=== PATIENT | male | born 1985 | race Caucasian/White ===

== ENCOUNTER 2017-10-18 10:28 | Emergency (ER) | payer OTHER ==
[2017-10-18 10:42] VITALS: BP 147/80; PULSE 82; RESP 16; TEMP 98.6
[2017-10-18 10:47] LABS: Glucose,Whole Blood 340 mg/dL (75-99)
--- NOTE | 2017-10-18 11:03 | ED ---
General Adult HPI - General Chief complaint: Recheck/Abnormal Lab/Rx Stated complaint: DIABETIC Time Seen by Provider: 10/18/17 10:40 Source: EMS, RN notes reviewed Mode of arrival: EMS Limitations: no limitations - History of Present Illness Initial comments: This is a 32-year-old male who is a diabetic. Patient comes into the emergency department today complaining that he has high sugar in the 500s. Patient states she's been taking his insulin normally. Patient states he has not eaten yet today. Patient states this happens quite a bit with him. Patient states he has not been sick at all. Patient denies any fever or chills. Patient denies any difficulty breathing or shortness of breath or cough. Patient denies any chest pain or palpitations. Patient denies abdominal pain patient denies nausea vomiting diarrhea. Patient denies any rashes or redness or swelling. Patient denies any headache patient denies numbness weakness. Patient denies lightheadedness dizziness or nursing about so. Patient then received a phone call after I did a physical exam and he got an argument on the phone talking about going to rehabilitation tomorrow he would not tell me what happened or what was going on other than he wanted to leave AMA immediately. He wouldn't even discuss it with me or listen to me he was going to rip out his own IV. - Related Data Home Medications Medication Instructions Recorded Confirmed DULoxetine HCL [Cymbalta] 30 mg PO DAILY 03/17/16 03/17/16 Divalproex [Depakote] 500 mg PO BID 03/17/16 03/17/16 Gabapentin 800 mg PO TID 03/17/16 03/17/16 Insulin Aspart [NovoLOG] See Protocol SQ AC-TID 03/17/16 03/17/16 LORazepam [Ativan] 0.5 mg PO BID 03/17/16 03/17/16 buPROPion XL [Wellbutrin Xl] 150 mg PO DAILY 03/17/16 03/17/16 traZODone HCL [Oleptro ER] 150 mg PO HS 03/17/16 03/17/16 Allergies Allergy/AdvReac Type Severity Reaction Status Date / Time No Known Allergies Allergy Verified 10/18/17 10:41 Review of Systems ROS Statement: Those systems with pertinent positive or pertinent negative responses have been documented in the HPI. ROS Other: All systems not noted in ROS Statement are negative. Past Medical History Past Medical History: Diabetes Mellitus History of Any Multi-Drug Resistant Organisms: None Reported Past Surgical History: No Surgical Hx Reported Past Anesthesia/Blood Transfusion Reactions: No Reported Reaction Past Psychological History: Anxiety, Bipolar, Depression, Panic Disorder, PTSD Smoking Status: Current every day smoker Past Alcohol Use History: None Reported Past Drug Use History: Cocaine, Marijuana General Exam - General Exam Comments Initial Comments: GENERAL: Patient is well-developed and well-nourished. Patient is nontoxic and well- hydrated and is in no acute distress. ENT: Neck is soft and supple. No significant lymphadenopathy is noted. Oropharynx is clear. Moist mucous membranes. Neck has full range of motion without eliciting any pain. EYES: The sclera were anicteric and conjunctiva were pink and moist. Extraocular movements were intact and pupils were equal round and reactive to light. Eyelids were unremarkable. PULMONARY: Unlabored respirations. Good breath sounds bilaterally. No audible rales rhonchi or wheezing was noted. CARDIOVASCULAR: There is a regular rate and rhythm without any murmurs gallops or rubs. ABDOMEN: Soft and nontender with normal bowel sounds. No palpable organomegaly was noted. There is no palpable pulsatile mass. SKIN: Skin is clear with no lesions or rashes and otherwise unremarkable. NEUROLOGIC: Patient is alert and oriented x3. Cranial nerves II through XII are grossly intact. Motor and sensory are also intact. Normal speech, volume and content. Symmetrical smile. MUSCULOSKELETAL: Normal extremities with adequate strength and full range of motion. No lower extremity swelling or edema. No calf tenderness. LYMPHATICS: No significant lymphadenopathy is noted PSYCHIATRIC: Normal psychiatric evaluation. Limitations: no limitations Course Vital Signs 10/18/17 10:38 Temperature 98.6 F Pulse Rate 82 Respiratory 16 Rate Blood Pressure 147/80 O2 Sat by Pulse 100 Oximetry Medical Decision Making - Lab Data Lab Results 10/18/17 Range/Units 10:43 POC Glucose (mg/dL) 340 H (75-99) mg/dL POC Glu Cut Off Saw Operator Metal ID Kiesha Toribio Disposition Clinical Impression: Hyperglycemia Disposition: Left Against Medical Advice Is patient prescribed a controlled substance at d/c from ED?: No [facility] [[facility] - 1-2 days Time of Disposition: 11:03
[2017-10-18] MEDS ORDERED: SODIUM CHLORIDE 0.9% 1,000 ML IV ONE (11:05)
== END 2017-10-18 11:09 | disposition left against medical advice (07) ==
LOC: EC 10:28
DX: E11.65 Type 2 diabetes mellitus with hyperglycemia (principal); F31.9 Bipolar disorder, unspecified; F41.0 Panic disorder [episodic paroxysmal anxiety]; F43.10 Post-traumatic stress disorder, unspecified; F17.200 Nicotine dependence, unspecified, uncomplicated; Z53.29 Procedure and treatment not carried out because of patient's decision for other reasons; Z79.4 Long term (current) use of insulin; Z79.899 Other long term (current) drug therapy
CPT/HCPCS: 36415; 99283

== ENCOUNTER 2019-03-11 23:58 | Emergency (ER) | payer OTHER ==
[2019-03-12 00:07] LABS: Glucose,Whole Blood 52 mg/dL (75-99)
[2019-03-12 00:25] LABS: Glucose,Whole Blood 54 mg/dL (75-99)
[2019-03-12 00:52] LABS: Glucose,Whole Blood 65 mg/dL (75-99)
[2019-03-12 00:58] LABS: Glucose,Whole Blood 80 mg/dL (75-99)
--- NOTE | 2019-03-12 01:06 | ED ---
Recheck HPI - General Chief Complaint: Recheck/Abnormal Lab/Rx Stated Complaint: Diabetic Issues/ not feeling well Time Seen by Provider: 03/12/19 00:02 Source: patient Mode of arrival: ambulatory Limitations: no limitations - History of Present Illness Initial Comments: 's patient is 34-year-old man who presents to the emergency department with like that he was not feeling well. Patient had been at rehabilitation Center and then signed out because he did not like the way that facility was being managed. Patient has not had access to any of his medications subsequently. States that he did have his insulin earlier today. Patient states that he is feeling nauseated. Denies focal pain. No dyspnea area no fever or chills. MD Complaint: other (Blood sugar in the 50s) -: hour(s) Returns Today for: request for prescription Context: ran out of medication Associated Symptoms: nausea - Related Data Home Medications Medication Instructions Recorded Confirmed Divalproex [Depakote] 500 mg PO BID 03/17/16 03/12/19 Gabapentin 800 mg PO TID 03/17/16 03/12/19 INSULIN ASPART (NovoLOG) [NovoLOG] See Protocol SQ AC-TID 03/17/16 03/12/19 buPROPion XL [Wellbutrin Xl] 150 mg PO DAILY 03/17/16 03/12/19 Lisinopril [Zestril] 5 mg PO DAILY 03/12/19 03/12/19 traMADol HCL [Ultram] 50 mg PO Q12HR PRN 03/12/19 03/12/19 Allergies Allergy/AdvReac Type Severity Reaction Status Date / Time No Known Allergies Allergy Verified 03/12/19 00:07 Review of Systems ROS Statement: Those systems with pertinent positive or pertinent negative responses have been documented in the HPI. ROS Other: All systems not noted in ROS Statement are negative. Constitutional: Denies: fever, weakness Respiratory: Denies: cough, dyspnea Cardiovascular: Denies: chest pain, palpitations, edema, syncope Gastrointestinal: Reports: nausea. Denies: abdominal pain, vomiting, diarrhea Genitourinary: Denies: dysuria Musculoskeletal: Denies: back pain Skin: Denies: rash Neurological: Denies: headache Past Medical History Past Medical History: Diabetes Mellitus History of Any Multi-Drug Resistant Organisms: None Reported Past Surgical History: No Surgical Hx Reported Past Anesthesia/Blood Transfusion Reactions: No Reported Reaction Past Psychological History: Anxiety, Bipolar, Depression, Panic Disorder, PTSD Smoking Status: Current every day smoker Past Alcohol Use History: None Reported Past Drug Use History: Cocaine, Marijuana General Exam Limitations: no limitations General appearance: alert, in no apparent distress Head exam: Present: atraumatic, normocephalic Eye exam: Present: normal appearance. Absent: scleral icterus, conjunctival injection Neck exam: Present: normal inspection Respiratory exam: Present: normal lung sounds bilaterally. Absent: respiratory distress, wheezes, rales, rhonchi, stridor Cardiovascular Exam: Present: regular rate, normal rhythm, normal heart sounds. Absent: systolic murmur, diastolic murmur, rubs, gallop GI/Abdominal exam: Present: soft. Absent: distended, tenderness, guarding, rebound, rigid Extremities exam: Present: normal inspection, normal capillary refill. Absent: pedal edema, calf tenderness Neurological exam: Present: alert, normal gait Skin exam: Present: warm, dry, intact, normal color. Absent: rash Course Vital Signs 03/12/19 00:02 Temperature 97.4 F L Pulse Rate 101 H Respiratory 17 Rate Blood Pressure 129/82 O2 Sat by Pulse 98 Oximetry Medical Decision Making - Medical Decision Making Shouldn't is 34-year-old man who presents here with complaint that he is not feeling well and has not had access to medications since approximately 8 this morning. The patient on arrival his blood sugar of 52. He is given oral intake which she did tolerate. Blood sugars followed serially and have improved, being stable now. He is given prescription for all of his medications. Return parameters and appropriate follow-up discussed. - Lab Data Lab Results 03/12/19 03/12/19 03/12/19 Range/Units 00:05 00:24 00:39 POC Glucose (mg/dL) 52 L 54 L 65 L (75-99) mg/dL POC Glu Profiling Machine Set Up Operator Tool ID Farzana Joy Alisha Welsh, Alisha 03/12/19 Range/Units 00:55 POC Glucose (mg/dL) 80 (75-99) mg/dL POC Glu Profiling Machine Set Up Operator Tool ID Rita Peralta Disposition Clinical Impression: Hypoglycemia Disposition: HOME SELF-CARE Condition: Good Instructions (If sedation given, give patient instructions): Hypoglycemia in a Person with Diabetes (ED) Is patient prescribed a controlled substance at d/c from ED?: No Referrals: Yolanda Harrison MD [Primary Care Provider] - 1-2 days
[2019-03-12 01:25] VITALS: BP 125/68; PULSE 100; RESP 18; TEMP 98.4
[2019-03-13 13:38] LABS: Glucose,Whole Blood 146 mg/dL (75-99)
== END 2019-03-12 01:26 | disposition home or self-care (01) ==
LOC: EC 23:58
DX: E11.649 Type 2 diabetes mellitus with hypoglycemia without coma (principal); F31.9 Bipolar disorder, unspecified; F41.0 Panic disorder [episodic paroxysmal anxiety]; F17.200 Nicotine dependence, unspecified, uncomplicated; Z79.4 Long term (current) use of insulin; Z79.899 Other long term (current) drug therapy
CPT/HCPCS: 36415; 99283

== ENCOUNTER 2019-05-07 10:44 | Emergency (ER) | payer OTHER ==
[2019-05-07 11:19] VITALS: BP 170/94; PULSE 92; RESP 16; TEMP 97.7
[2019-05-07] MEDS ORDERED: KETOROLAC 60 MG/2 ML VIAL IM STA (11:28)
--- NOTE | 2019-05-07 12:13 | XR ---
EXAMINATION TYPE: XR knee complete LT DATE OF EXAM: 05/07/2019 COMPARISON: NONE HISTORY: Pain TECHNIQUE: Four views are submitted. FINDINGS: Joint spaces are preserved. Osseous structures are intact. No acute fracture seen. IMPRESSION: 1. No acute fracture or dislocation.
--- NOTE | 2019-05-07 12:14 | XR ---
EXAMINATION TYPE: XR tibia fibula LT DATE OF EXAM: 05/07/2019 COMPARISON: NONE HISTORY: Pain TECHNIQUE: Two views are submitted. FINDINGS: The osseous structures are intact. The joint spaces are preserved. IMPRESSION: 1. No acute osseous abnormality.
[2019-05-07] MEDS ORDERED: traMADol 50 MG STARTER PACK 3 TAB BTL PO STA (12:38)
--- NOTE | 2019-05-07 12:40 | ED ---
Lower Extremity Injury HPI - General Chief Complaint: Extremity Injury, Lower Stated Complaint: lt knee injury Time Seen by Provider: 05/07/19 11:21 Source: patient Mode of arrival: EMS Limitations: no limitations - History of Present Illness Initial Comments: Patient is a 34-year-old male presenting to the emergency Department with complaints of left knee pain since last night. Patient states he fell down a few stairs last night landing rate on his left knee. Patient states he's been having pain and swelling ever since. Patient denies previous history of left knee surgeries or injuries. Patient denies any other injuries from this fall including no LOC, no headache. Patient denies blood thinners. The patient has no other complaints at this time. Upon arrival to the ER, his vital signs are stable. - Related Data Home Medications Medication Instructions Recorded Confirmed Divalproex [Depakote] 500 mg PO BID 03/17/16 03/12/19 Gabapentin 800 mg PO TID 03/17/16 03/12/19 INSULIN ASPART (NovoLOG) [NovoLOG] See Protocol SQ AC-TID 03/17/16 03/12/19 buPROPion XL [Wellbutrin Xl] 150 mg PO DAILY 03/17/16 03/12/19 Lisinopril [Zestril] 5 mg PO DAILY 03/12/19 03/12/19 traMADol HCL [Ultram] 50 mg PO Q12HR PRN 03/12/19 03/12/19 Allergies Allergy/AdvReac Type Severity Reaction Status Date / Time No Known Allergies Allergy Verified 05/07/19 11:20 Review of Systems ROS Statement: Those systems with pertinent positive or pertinent negative responses have been documented in the HPI. ROS Other: All systems not noted in ROS Statement are negative. Past Medical History Past Medical History: Diabetes Mellitus History of Any Multi-Drug Resistant Organisms: None Reported Past Surgical History: No Surgical Hx Reported Past Anesthesia/Blood Transfusion Reactions: No Reported Reaction Past Psychological History: Anxiety, Bipolar, Depression, Panic Disorder, PTSD Smoking Status: Current every day smoker Past Alcohol Use History: None Reported Past Drug Use History: Cocaine, Marijuana General Exam - General Exam Comments Initial Comments: GENERAL: Patient appears uncomfortable, complaining of intense pain.. HEAD: Atraumatic, normocephalic. EYES: Pupils equal round and reactive to light, extraocular movements intact, sclera anicteric, conjunctiva are normal. ENT: Moist mucous membranes. NECK: Normal range of motion, supple without lymphadenopathy or JVD. LUNGS: Breath sounds clear to auscultation bilaterally and equal. No wheezes rales or rhonchi. HEART: Regular rate and rhythm without murmurs, rubs or gallops. ABDOMEN: Soft, nontender, normoactive bowel sounds. No guarding, no rebound. No masses appreciated. EXTREMITIES: Pain with palpation of the entire left knee, small abrasion atop the left patella. Patient is unwilling to move left knee so range of motion cannot be tested. There is very mild swelling around the knee joint. No erythema, no pain with palpation of the left ankle, tib-fib, femur area. No pain in the left hip. Patient is neurovascular intact. NEUROLOGICAL: Normal speech SKIN: Warm, Dry, normal turgor, no rashes or lesions noted. Limitations: no limitations Course Vital Signs 05/07/19 11:17 Temperature 97.7 F Pulse Rate 92 Respiratory 16 Rate Blood Pressure 170/94 O2 Sat by Pulse 93 L Oximetry Medical Decision Making - Medical Decision Making Patient is a 34-year-old male presenting with left knee pain after falling on it last night. Patient has small abrasion on the left anterior knee. X-rays reveal no acute fractures dislocations. Patient is unwilling to move the knee so further ligament testing is not performed today. I discussed with patient and he does a follow-up with orthopedics. Patient was given Toradol injection for pain relief. Patient will also be given Ultram started pack for pain relief. Patient is stable for discharge at this time. Patient was given referral to orthopedics. Return parameters were discussed with the patient he verbalizes understanding. Disposition Clinical Impression: Left knee pain Disposition: HOME SELF-CARE Condition: Stable Instructions (If sedation given, give patient instructions): Knee Sprain (ED) Additional Instructions: Please return to the Emergency Department if symptoms worsen or any other concerns. Continue with anti-inflammatories such as motrin. Ice, elevate. Follow-up with orthopedics as discussed. Is patient prescribed a controlled substance at d/c from ED?: No Referrals: Yolanda Harrison MD [Primary Care Provider] - 1-2 days Marvin Laureano DO [Medical Doctor] - 1-2 days
== END 2019-05-07 12:56 | disposition home or self-care (01) ==
LOC: EC 10:44
DX: M25.562 Pain in left knee (principal); S80.212A Abrasion, left knee, initial encounter; E11.9 Type 2 diabetes mellitus without complications; F31.9 Bipolar disorder, unspecified; F41.0 Panic disorder [episodic paroxysmal anxiety]; F17.200 Nicotine dependence, unspecified, uncomplicated; Z79.4 Long term (current) use of insulin; Z79.899 Other long term (current) drug therapy; W10.9XXA Fall (on) (from) unspecified stairs and steps, initial encounter
CPT/HCPCS: 73590; 73562; 99283; 96372; J1885

== ENCOUNTER 2019-06-09 21:33 | Inpatient (IN) | payer MEDICAID, OTHER ==
[2019-06-09 22:16] LABS: Amphetamine Screen,Urine Detected (NotDetected); Barbiturate Screen,Urine Not Detected (NotDetected); Benzodiazepines Screen,Urine Not Detected (NotDetected); Cocaine Screen,Urine Detected (NotDetected); Methadone Screen, Urine Not Detected (NotDetected); Opiate Screen,Urine Not Detected (NotDetected); Oxycodone Screen, Urine Not Detected (NotDetected); Phencyclidine Screen,Urine Not Detected (NotDetected); Tricyclic Antidepressant,Urine Not Detected (NotDetected); Urn Cannabinoid Scrn Not Detected (NotDetected)
[2019-06-09 22:35] LABS: Glucose,Whole Blood >600 mg/dL (75-99)
[2019-06-09] MEDS ORDERED: SODIUM CHLORIDE 0.9% 2,000 ML IV ONE (22:45)
[2019-06-09] MEDS ORDERED: INSULIN REGULAR 100 UNIT/ML VIAL SQ STA (22:45)
--- NOTE | 2019-06-09 22:50 | ED ---
Psych HPI - General Chief Complaint: Psychiatric Symptoms Stated Complaint: Suicidal Time Seen by Provider: 06/09/19 21:44 Source: patient Mode of arrival: ambulatory - History of Present Illness Initial Comments: This patient is a 34-year-old man who presents to have psychiatric evaluation. Patient has history of depression and previous suicidal ideation. He states that he ran out of his psychiatric medications about 2 weeks ago and since that time is having worsening of his mood and now having recurring thoughts of suicide by overdosing. MD Complaint: suicidal ideation, feels depressed Onset/Timin -: week(s) Associated Psychiatric Symptoms: depression, suicidal ideation History of same: No Quality: getting worse Improves With: medication Worsens With: none Context: not taking psychiatric medications - Related Data Home Medications Medication Instructions Recorded Confirmed Divalproex [Depakote] 500 mg PO BID 03/17/16 03/12/19 Gabapentin 800 mg PO TID 03/17/16 03/12/19 INSULIN ASPART (NovoLOG) [NovoLOG] See Protocol SQ AC-TID 03/17/16 03/12/19 buPROPion XL [Wellbutrin Xl] 150 mg PO DAILY 03/17/16 03/12/19 Lisinopril [Zestril] 5 mg PO DAILY 03/12/19 03/12/19 traMADol HCL [Ultram] 50 mg PO Q12HR PRN 03/12/19 03/12/19 Allergies Allergy/AdvReac Type Severity Reaction Status Date / Time No Known Allergies Allergy Verified 06/09/19 21:39 Review of Systems ROS Statement: Those systems with pertinent positive or pertinent negative responses have been documented in the HPI. ROS Other: All systems not noted in ROS Statement are negative. Constitutional: Denies: fever, chills Respiratory: Denies: cough, dyspnea Cardiovascular: Denies: chest pain, palpitations Gastrointestinal: Denies: abdominal pain, vomiting, diarrhea Genitourinary: Denies: dysuria, frequency, hematuria Musculoskeletal: Denies: back pain Skin: Denies: rash Neurological: Denies: headache, weakness Psychiatric: Reports: depression, suicidal thoughts. Denies: auditory hallucinations, visual hallucinations, homicidal thoughts Past Medical History Past Medical History: Diabetes Mellitus History of Any Multi-Drug Resistant Organisms: None Reported Past Surgical History: No Surgical Hx Reported Past Anesthesia/Blood Transfusion Reactions: No Reported Reaction Past Psychological History: Anxiety, Bipolar, Depression, Panic Disorder, PTSD Smoking Status: Current every day smoker Past Alcohol Use History: None Reported Past Drug Use History: Cocaine, Marijuana, Methamphetamine General Exam Limitations: no limitations General appearance: alert, in no apparent distress Head exam: Present: atraumatic, normocephalic Eye exam: Present: normal appearance. Absent: scleral icterus, conjunctival injection ENT exam: Present: normal oropharynx Neck exam: Present: normal inspection Respiratory exam: Present: normal lung sounds bilaterally. Absent: respiratory distress, wheezes, rales, rhonchi, stridor Cardiovascular Exam: Present: regular rate, normal rhythm, normal heart sounds. Absent: systolic murmur, diastolic murmur, rubs, gallop GI/Abdominal exam: Present: soft. Absent: tenderness, guarding, rebound Back exam: Present: normal inspection Neurological exam: Present: alert Psychiatric exam: Present: depressed, suicidal ideation. Absent: agitated, anxious, flat affect, manic, homicidal ideation Skin exam: Present: warm, dry, intact, normal color. Absent: rash Course Vital Signs 06/09/19 21:36 Temperature 97.8 F Pulse Rate 102 H Respiratory 20 Rate Blood Pressure 134/81 O2 Sat by Pulse 99 Oximetry Medical Decision Making - Lab Data Result diagrams: 06/09/19 20:50 06/09/19 20:50 Lab Results 06/09/19 06/09/19 06/09/19 Range/Units 20:50 20:50 20:50 WBC 12.4 H (3.8-10.6) k/uL RBC 4.02 L (4.30-5.90) m/uL Hgb 12.3 L (13.0-17.5) gm/dL Hct 38.3 L (39.0-53.0) % MCV 95.4 (80.0-100.0) fL MCH 30.7 (25.0-35.0) pg MCHC 32.2 (31.0-37.0) g/dL RDW 13.0 (11.5-15.5) % Plt Count 445 (150-450) k/uL Neutrophils % 73 % Lymphocytes % 18 % Monocytes % 4 % Eosinophils % 2 % Basophils % 2 % Neutrophils # 9.0 H (1.3-7.7) k/uL Lymphocytes # 2.2 (1.0-4.8) k/uL Monocytes # 0.5 (0-1.0) k/uL Eosinophils # 0.2 (0-0.7) k/uL Basophils # 0.2 (0-0.2) k/uL Sodium 130 L (137-145) mmol/L Potassium 4.9 (3.5-5.1) mmol/L Chloride 93 L (98-107) mmol/L Carbon Dioxide 30 (22-30) mmol/L Anion Gap 7 mmol/L BUN 22 H (9-20) mg/dL Creatinine 0.80 (0.66-1.25) mg/dL Est GFR (CKD-EPI)AfAm >90 (>60 ml/min/1.73 sqM) Est GFR (CKD-EPI)NonAf >90 (>60 ml/min/1.73 sqM) Glucose 620 H* (74-99) mg/dL POC Glucose (mg/dL) (75-99) mg/dL POC Glu Palliative Medicine Physician ID Calcium 9.4 (8.4-10.2) mg/dL Urine Opiates Screen (NotDetected) Ur Oxycodone Screen (NotDetected) Urine Methadone Screen (NotDetected) Ur Propoxyphene Screen (NotDetected) Ur Barbiturates Screen (NotDetected) U Tricyclic Antidepress (NotDetected) Ur Phencyclidine Scrn (NotDetected) Ur Amphetamines Screen (NotDetected) U Methamphetamines Scrn (NotDetected) U Benzodiazepines Scrn (NotDetected) Urine Cocaine Screen (NotDetected) U Marijuana (THC) Screen (NotDetected) Acetone, Qual Negative (Negative) 06/09/19 06/09/19 06/10/19 Range/Units 21:47 22:33 00:59 WBC (3.8-10.6) k/uL RBC (4.30-5.90) m/uL Hgb (13.0-17.5) gm/dL Hct (39.0-53.0) % MCV (80.0-100.0) fL MCH (25.0-35.0) pg MCHC (31.0-37.0) g/dL RDW (11.5-15.5) % Plt Count (150-450) k/uL Neutrophils % % Lymphocytes % % Monocytes % % Eosinophils % % Basophils % % Neutrophils # (1.3-7.7) k/uL Lymphocytes # (1.0-4.8) k/uL Monocytes # (0-1.0) k/uL Eosinophils # (0-0.7) k/uL Basophils # (0-0.2) k/uL Sodium (137-145) mmol/L Potassium (3.5-5.1) mmol/L Chloride (98-107) mmol/L Carbon Dioxide (22-30) mmol/L Anion Gap mmol/L BUN (9-20) mg/dL Creatinine (0.66-1.25) mg/dL Est GFR (CKD-EPI)AfAm (>60 ml/min/1.73 sqM) Est GFR (CKD-EPI)NonAf (>60 ml/min/1.73 sqM) Glucose (74-99) mg/dL POC Glucose (mg/dL) >600 H 135 H (75-99) mg/dL POC Glu Palliative Medicine Physician ID Leonor Cordova Tiffany Calcium (8.4-10.2) mg/dL Urine Opiates Screen Not Detected (NotDetected) Ur Oxycodone Screen Not Detected (NotDetected) Urine Methadone Screen Not Detected (NotDetected) Ur Propoxyphene Screen Not Detected (NotDetected) Ur Barbiturates Screen Not Detected (NotDetected) U Tricyclic Antidepress Not Detected (NotDetected) Ur Phencyclidine Scrn Not Detected (NotDetected) Ur Amphetamines Screen Detected H (NotDetected) U Methamphetamines Scrn Detected H (NotDetected) U Benzodiazepines Scrn Not Detected (NotDetected) Urine Cocaine Screen Detected H (NotDetected) U Marijuana (THC) Screen Not Detected (NotDetected) Acetone, Qual (Negative) Disposition Clinical Impression: Suicidal ideation, Mood disorder, Hyperglycemia, Substance abuse Disposition: ADMITTED IP TO THIS HOSP Condition: Fair Is patient prescribed a controlled substance at d/c from ED?: No Referrals: Yolanda Harrison MD [Primary Care Provider] - 1-2 days
[2019-06-09 23:07] LABS: Basophils # (A) 0.2 k/uL (0-0.2); Basophils % (A) 2 %; Eosinophils # (A) 0.2 k/uL (0-0.7); Eosinophils % (A) 2 %; HCT 38.3 % (39.0-53.0); HGB 12.3 gm/dL (13.0-17.5); Lymphocytes # (A) 2.2 k/uL (1.0-4.8); Lymphocytes % (A) 18 %; MCH 30.7 pg (25.0-35.0); MCHC 32.2 g/dL (31.0-37.0); MCV 95.4 fL (80.0-100.0); Mean Platelet Volume 7.3; Monocytes # (A) 0.5 k/uL (0-1.0); Monocytes % (A) 4 %; Neutrophils % (A) 73 %; Platelet Count 445 k/uL (150-450); RBC 4.02 m/uL (4.30-5.90); WBC 12.4 k/uL (3.8-10.6)
[2019-06-09 23:24] LABS: African American GFR (CKD) >90 (>60 ml/min/1.73 sqM); Anion Gap 7 mmol/L; Blood Urea Nitrogen 22 mg/dL (9-20); Calcium 9.4 mg/dL (8.4-10.2); Carbon Dioxide 30 mmol/L (22-30); Chloride 93 mmol/L (98-107); Non-African American GFR(CKD) >90 (>60 ml/min/1.73 sqM); Potassium 4.9 mmol/L (3.5-5.1); Sodium 130 mmol/L (137-145)
[2019-06-09 23:34] LABS: Glucose 620 mg/dL (74-99)
[2019-06-09] MEDS ORDERED: SODIUM CHLORIDE 0.9% 1,000 ML IV ONE (23:45)
[2019-06-10 01:02] LABS: Glucose,Whole Blood 135 mg/dL (75-99)
[2019-06-10] MEDS ORDERED: LORazepam 2 MG/ML INJ IV STA (02:22)
[2019-06-10] MEDS ORDERED: MAG HYDROX/AL HYDROX/SIMETH 30 ML CUP PO PRN (03:18)
[2019-06-10] MEDS ORDERED: MAGNESIUM HYDROXIDE 2,400 MG/10 ML CUP PO PRN (03:18)
[2019-06-10] MEDS ORDERED: OLANZapine ODT 5 MG TAB PO PRN (03:23)
[2019-06-10] MEDS ORDERED: traZODone HCL 50 MG TAB PO PRN (03:23)
[2019-06-10 08:01] LABS: Glucose,Whole Blood 222 mg/dL (75-99)
[2019-06-10 08:14] LABS: ALT 34 U/L (4-49); AST 23 U/L (17-59); Albumin 2.8 g/dL (3.5-5.0); Alkaline Phosphatase 120 U/L (38-126); Bilirubin, Delta 0.2 mg/dL (0.0-0.2); Cholesterol 161 mg/dL (<200); HDL Cholesterol 49 mg/dL (40-60); LDL Cholesterol,Calculated 89 mg/dL (0-99); Total Bilirubin 0.2 mg/dL (0.2-1.3); Total Protein 5.7 g/dL (6.3-8.2); Triglycerides 113 mg/dL (<150)
[2019-06-10 08:19] LABS: Valproic Acid (Depakene) <10.0 ug/mL
[2019-06-10] MEDS ORDERED: INSULIN DETEMIR (LEVEMIR) 100 UNIT/ML SYR SQ ONE (09:04)
[2019-06-10] MEDS ORDERED: INSULIN ASPART (NovoLOG) 100 UNIT/ML VIAL SQ ONE (09:15)
[2019-06-10] MEDS: NICOTINE 14MG/24HR PATCH TRANSDERM SCH ×2 (09:23→09:29)
[2019-06-10] MEDS: DIVALPROEX 250 MG TABLET.DR PO SCH ×2 (09:23→20:21)
[2019-06-10] MEDS ORDERED: INSULIN ASPART (NovoLOG) 100 UNIT/ML VIAL SQ SCH (12:30)
[2019-06-10 12:45] LABS: Glucose,Whole Blood 46 mg/dL (75-99)
[2019-06-10 12:45] LABS: Glucose,Whole Blood 48 mg/dL (75-99)
[2019-06-10 12:58] LABS: Glucose,Whole Blood 64 mg/dL (75-99)
[2019-06-10 13:25] LABS: Glucose,Whole Blood 90 mg/dL (75-99)
--- NOTE | 2019-06-10 13:33 | P.HP ---
Psychiatric H&P - . H&P Date: 06/10/19 History & Physical: IDENTIFYING Data: Naveed Messina is a 34-year-old single male who is currently homeless, unemployed, has psychiatric history of bipolar disorder, anxiety disorder, and substance use disorder, and medical history of diabetes mellitus. The patient has been admitted to our inpatient psychiatric services after been transferred from [facility] ED. Patient was initially brought to ED by his friend because patient was feeling depressed and suicidal. The patient has been admitted on voluntary basis to our service. CHIEF COMPLAINT: "Depression, suicidal thoughts." HISTORY OF PRESENT ILLNESS: The patient brought himself to the emergency department because severe depression and feeling suicidal. Patient was very superficial in his answers to questions and he couldn't give any specific information about his symptoms. He reports has been feeling increasingly depressed and suicidal for the last "several weeks" and he wasn't taking his psychiatric medications for "few weeks", and he was using meth and cocaine "almost every day". Patient reports depression symptoms including feeling depressed for most of the time, hopeless, worthless, was present and suicidal thoughts and intermittently thinking about plan to overdose on drugs. Patient reports has been using cocaine and meth amphetamine intravenously for "a while" and he couldn't give any specific amount of the drugs. He reports suffering from severe anxiety that he feels anxious with racing thoughts most of the time that he couldn't concentrate or sleep because of his anxiety. He reports symptoms of tightness of the chest, and racing heart due to his anxiety. Reports history of panic attacks but he couldn't give specific information when was the last time had panic attack. He denies symptoms of nightmares, flashbacks, or intrusive thoughts, and he denies any history of PTSD. Patient reports history of severe mood cycles with previous episodes of manic symptoms including times with very elated and euphoric mood, feeling "invincible", absence need to sleep due to unusual increase in activities, and impulsive uninhibited behavior. Patient couldn't give any further details about his previous manic episodes and responded by "I don't remember". He denies any current or previous symptoms of psychosis including auditory, visual hallucination, paranoid ideation, and no delusions could be elicited. Patient denies any history of self-injurious behavior, but reports previous suicidal attempts. Patient couldn't give any detailed information about his previous suicidal attempt and responded by "I don't remember". He admitted for heavy use of meth amphetamine and cocaine "shooting up every day", but he couldn't identify amount or for how long he has been using that much and responded to questions by "I don't remember". PAST PSYCHIATRIC HISTORY: Previous diagnoses: Bipolar disorder, generalized anxiety disorder, substance use disorder. Previous psychiatric hospitalizations: "Several times", but he couldn't give any more information "I don't remember". Previous suicide attempts: He admitted for previous suicidal attempts, but again he couldn't give any further information and responded to questions by "I don't remember". Previous outpatient psychiatric treatment: Reports received outpatient treatment at [facility] but he couldn't remember the last time he was seen by psychiatrist. Current psychiatric medications: Currently not connected with any outpatient or other psychiatric treatment. Previous medication trials: Reports the most recent medication trial was Depakote 500 mg twice daily and Wellbutrin 150 mg once a day, but he stopped taking these medications for "a while". SUBSTANCE ABUSE HISTORY: Nicotine: Smokes about half pack every day. Alcohol: Reports occasional use of alcohol but admitted for his main drug problem meth amphetamine and cocaine. He couldn't give any detailed information about how much alcohol he was using and when was the last time. Opioid: Reports history of IV use of heroin, and he reports last time was "a while ago". Cocaine/ other stimulants: Reports current use of cocaine and meth amphetamine by intravenous route but he couldn't give average amount or for how long has been using that much. Reports history of previous inpatient substance use disorder treatment, and he requested to be discharged to inpatient substance use treatment. Social History: Patient was born in [place] and raised up by his parents. Housing: Currently is homeless. The patient is never . Work history: Currently unemployed. Education: Patient reports attaining an educational level of 10th grade. Children: Patient reports having 1 child. Legal history: Denies History of psychological trauma: Denies FAMILY HISTORY: Psychiatric Illness: Denies. Substance abuse: Denies . Completed Suicides: Denies. Medical History: Diabetes mellitus MENTAL STATUS EVALUATION: Appearance: Appears older stated age, poorly groomed, below average body built, and no specific features. Gait/ posture: Steady gait, normal arm swinging, no abnormal movements, with relaxed posture. Attitude and Behavior: not engaged, superficial, not fully cooperative, , poor eye contact during course of interview. Motor Activity: normal psychomotor activity. Speech: spontaneous, normal rate, rhythm, and articulation. normal volume. not pressured. Language: Articulating, naming objects and repeat phrases. Mood: depressed Affect: Restricted. Thought process: Linear, goal-directed. Association: Not tangential, not circumstantial. Thought content: denies delusions, reports suicidal thoughts, denies homicidal thoughts, denies intentions, or plans. Perception: denies any hallucinations Alertness: No impairment. Concentration: impaired Orientation: Oriented to time, place, person, and situation Insight regarding psychiatric condition: fair Judgment regarding daily activities and social situation: fair Impulse control: fair Strengths: Access to medical and mental treatment. Mobile Challenges: Homeless Substance use poor compliance with treatment Allergies Allergy/AdvReac Type Severity Reaction Status Date / Time No Known Allergies Allergy Verified 06/10/19 05:40 Vital Signs Temp 97.2 F L 06/10/19 04:34 Pulse 88 06/10/19 04:34 Resp 16 06/10/19 04:34 BP 131/77 06/10/19 04:34 Pulse Ox 98 06/10/19 04:34 Intake & Output 06/09/19 06/10/19 06/10/19 18:59 06:59 18:59 Weight 68.991 kg Review of Lab results: Laboratory Last Values WBC 12.4 k/uL (3.8-10.6) H 06/09/19 20:50 RBC 4.02 m/uL (4.30-5.90) L 06/09/19 20:50 Hgb 12.3 gm/dL (13.0-17.5) L 06/09/19 20:50 Hct 38.3 % (39.0-53.0) L 06/09/19 20:50 MCV 95.4 fL (80.0-100.0) 06/09/19 20:50 MCH 30.7 pg (25.0-35.0) 06/09/19 20:50 MCHC 32.2 g/dL (31.0-37.0) 06/09/19 20:50 RDW 13.0 % (11.5-15.5) 06/09/19 20:50 Plt Count 445 k/uL (150-450) 06/09/19 20:50 Neutrophils % 73 % 06/09/19 20:50 Lymphocytes % 18 % 06/09/19 20:50 Monocytes % 4 % 06/09/19 20:50 Eosinophils % 2 % 06/09/19 20:50 Basophils % 2 % 06/09/19 20:50 Neutrophils # 9.0 k/uL (1.3-7.7) H 06/09/19 20:50 Lymphocytes # 2.2 k/uL (1.0-4.8) 06/09/19 20:50 Monocytes # 0.5 k/uL (0-1.0) 06/09/19 20:50 Eosinophils # 0.2 k/uL (0-0.7) 06/09/19 20:50 Basophils # 0.2 k/uL (0-0.2) 06/09/19 20:50 Sodium 130 mmol/L (137-145) L 06/09/19 20:50 Potassium 4.9 mmol/L (3.5-5.1) 06/09/19 20:50 Chloride 93 mmol/L (98-107) L 06/09/19 20:50 Carbon Dioxide 30 mmol/L (22-30) 06/09/19 20:50 Anion Gap 7 mmol/L 06/09/19 20:50 BUN 22 mg/dL (9-20) H 06/09/19 20:50 Creatinine 0.80 mg/dL (0.66-1.25) 06/09/19 20:50 Est GFR (CKD-EPI)AfAm >90 (>60 ml/min/1.73 sqM) 06/09/19 20:50 Est GFR (CKD-EPI)NonAf >90 (>60 ml/min/1.73 sqM) 06/09/19 20:50 Glucose 620 mg/dL (74-99) H* 06/09/19 20:50 POC Glucose (mg/dL) 64 mg/dL (75-99) L 06/10/19 12:56 POC Glu [employer] FANY Telma Valle 06/10/19 12:56 Calcium 9.4 mg/dL (8.4-10.2) 06/09/19 20:50 Total Bilirubin 0.2 mg/dL (0.2-1.3) 06/10/19 07:05 Conjugated Bilirubin 0.0 mg/dL (0.0-0.3) 06/10/19 07:05 Unconjugated Bilirubin 0.0 mg/dL (0.0-1.1) 06/10/19 07:05 Delta Bilirubin 0.2 mg/dL (0.0-0.2) 06/10/19 07:05 AST 23 U/L (17-59) 06/10/19 07:05 ALT 34 U/L (4-49) 06/10/19 07:05 Alkaline Phosphatase 120 U/L (38-126) 06/10/19 07:05 Total Protein 5.7 g/dL (6.3-8.2) L 06/10/19 07:05 Albumin 2.8 g/dL (3.5-5.0) L 06/10/19 07:05 Triglycerides 113 mg/dL (<150) 06/10/19 07:05 Cholesterol 161 mg/dL (<200) 06/10/19 07:05 LDL Cholesterol, Calc 89 mg/dL (0-99) 06/10/19 07:05 HDL Cholesterol 49 mg/dL (40-60) 06/10/19 07:05 TSH 1.940 mIU/L (0.465-4.680) 06/10/19 07:05 Urine Opiates Screen Not Detected (NotDetected) 06/09/19 21:47 Ur Oxycodone Screen Not Detected (NotDetected) 06/09/19 21:47 Urine Methadone Screen Not Detected (NotDetected) 06/09/19 21:47 Ur Propoxyphene Screen Not Detected (NotDetected) 06/09/19 21:47 Ur Barbiturates Screen Not Detected (NotDetected) 06/09/19 21:47 Valproic Acid <10.0 ug/mL 06/10/19 07:05 U Tricyclic Antidepress Not Detected (NotDetected) 06/09/19 21:47 Ur Phencyclidine Scrn Not Detected (NotDetected) 06/09/19 21:47 Ur Amphetamines Screen Detected (NotDetected) H 06/09/19 21:47 U Methamphetamines Scrn Detected (NotDetected) H 06/09/19 21:47 U Benzodiazepines Scrn Not Detected (NotDetected) 06/09/19 21:47 Urine Cocaine Screen Detected (NotDetected) H 06/09/19 21:47 U Marijuana (THC) Screen Not Detected (NotDetected) 06/09/19 21:47 Acetone, Qual Negative (Negative) 06/09/19 20:50 Assessment: Bipolar disorder, most recent episode depressive without psychotic features. Rule out generalized anxiety disorder. Methamphetamine use disorder, severe. Cocaine use disorder, severe. Rule out alcohol use disorder. Rule out opioid use disorder. Diabetes. TREATMENT PLAN/RECOMMENDATIONS: Medical Decision making: The patient presented with severe depression and suicidal ideation. The patient at high risk to hurt himself if he is not in the inpatient setting. The patient psychiatric symptoms are not stable and he needs further management of psychiatric medications and further planning for discharge. Therefore, inpatient level of care is needed. Continue the patient inpatient for safety. Continue the patient under 15 minutes safe check for safety. Psych education regarding his diagnosis, and treatment option. The patient will also be provided with individual therapy, group therapy, substance abuse counseling, gain insight, and coping skills. Consider medical consultation if any acute medical issue arise. Medications: Started Depakote 250 mg twice daily for mood stabilization. Start the Neurontin 200 mg 3 times a day daily for anxiety. Start trazodone 50 mg at bedtime as needed for insomnia. Will start Wellbutrin XL 150 mg daily tomorrow for depression symptoms. Labs: Monitor Depakote level as clinically indicated. The patient will be assessed on daily basis for his depression, suicidal ideation, and will be discharged back to his outpatient mental health provider upon stabilization. EXPECTED LENGTH OF STAY: 5-7 days.
[2019-06-10 14:52] LABS: Glucose,Whole Blood 257 mg/dL (75-99)
[2019-06-10] MEDS ORDERED: CARBAMIDE PEROXIDE 6.5% DROPS 15 ML BTL LEFT EAR STA (15:45)
[2019-06-10] MEDS: GABAPENTIN 100 MG CAP PO SCH ×2 (16:36→20:21)
[2019-06-10] MEDS: SULFAMETHOX-TMP 800-160MG 1 EACH TAB PO SCH (16:36)
[2019-06-10 17:44] LABS: Glucose,Whole Blood 254 mg/dL (75-99)
[2019-06-10] MEDS: INSULIN ASPART (NovoLOG) 100 UNIT/ML VIAL SQ SCH ×3 (18:00→20:39)
[2019-06-10 18:37] LABS: Hemoglobin A1C 12.6 % (4.0-6.0)
[2019-06-10 20:17] LABS: Glucose,Whole Blood 133 mg/dL (75-99)
[2019-06-10] MEDS: LISINOPRIL 5 MG TAB PO SCH (20:21)
--- NOTE | 2019-06-10 23:27 | CONS ---
CONSULTATION . DATE OF SERVICE: 06/10/2019 REASON FOR CONSULTATION: Advise regarding diabetes requested by Psychiatry. HISTORY OF PRESENT ILLNESS: This 34-year-old gentleman with a past medical history of multiple medical problems including history of type 1 diabetes mellitus, history of anxiety, bipolar depression, panic disorder, PTSD being followed by Dr. Harrison in the outpatient setting was admitted for psychiatric evaluation. However the patient's blood sugar is fluctuating all over the place and apparently the patient also not very compliant with medications. At home also, the blood sugars fluctuating according to him. There is no history of any fever, rigors or chills. No history of headache, loss of consciousness, seizures at this time. The patient apparently ran out of the psychiatric medication as well. PAST MEDICAL HISTORY: History of diabetes type 1, anxiety, bipolar depression, PTSD, history of noncompliance. MEDICATIONS: Prior to admission include: 1. Ultram 50 mg b.i.d. p.r.n. 2. Wellbutrin 150 mg b.i.d. p.r.n. daily. 3. Zestril 5 mg daily. 4. NovoLog t.i.d. 5. Gabapentin 800 mg p.o. t.i.d. 6. Depakote 500 mg p.o. b.i.d. ALLERGIES: None. FAMILY HISTORY: No history of heart disease or strokes in the family. SOCIAL HISTORY: History of smoking heroin, nicotine dependence, polysubstance abuse. REVIEW OF SYSTEMS: ENT: No diminished vision. No diminished hearing. CARDIOVASCULAR: No angina or palpitations. RESPIRATIONS: As mentioned earlier. GI no nausea or vomiting. : No dysuria or hematuria. CENTRAL NERVOUS SYSTEM: No numbness or weakness. ALLERGY/IMMUNOLOGY: No asthma or hayfever. MUSCULOSKELETAL as mentioned earlier. HEMATOLOGY/ONCOLOGY: No history anemia. ENDOCRINE: As mentioned earlier. CONSTITUTIONAL: As mentioned earlier. DERMATOLOGY: Negative. RHEUMATOLOGY negative. PSYCHIATRY as mentioned earlier. PHYSICAL EXAMINATION: Alert attentive pulse 88, blood pressure 130/77, respirations 16, temperature 97.2, pulse ox 98% on room air. HEENT: Conjunctivae normal. Oral mucosa moist. Neck is no jugular venous distention. No carotid bruit. No lymph node enlargement. Cardiovascular systems: S1, S2 muffled. RESPIRATION: Breath sounds diminished in the bases. No rhonchi. No crackles. ABDOMEN: Soft, nontender. No mass palpable. LEGS: No edema. No swelling. NERVOUS SYSTEM: Higher functions as mentioned earlier. Moves all 4 limbs. No focal motor or sensory deficits. LYMPHATICS: No lymph nodes palpable in the neck, axillae or groin. SKIN: No ulcer, no rash and no bleeding. JOINTS: No active deforming arthropathy. LABS: Accu-Cheks 248, 264, 90 and 257. WBC 12.2, hemoglobin 12.3. Urine drug screen is positive for cocaine, amphetamines. ASSESSMENT: 1. Diabetes mellitus type 2 with uncontrolled with hyper- and hypoglycemia with brittle diabetes type 1. 2. Hyponatremia. 3. Increased WBC. 4. Anemia. 5. History of anxiety, bipolar depression panic disorder, PTSD. 6. History of nicotine dependence. 7. History of polysubstance abuse including cocaine, marijuana, methamphetamine. 8. FULL CODE. RECOMMENDATIONS AND DISCUSSION: In this 34-year-old gentleman who presented with multiple complex medical issues, we will monitor the patient closely. Blood sugars are widely fluctuating at this time. I recommend continue with Levemir 50 units and with Accu-Cheks a.c. and at bedtime and 3 units per scale and continue to monitor. The patient also complaining of left ear ear pain. I would recommend brief course of p.o. antibiotics and as well as I recommend close followup. Further follow up with primary care physician Dr. Harrison regarding the above-mentioned issues. Otherwise, we will continue to monitor and I would also recommend UA with micro as well. There is no evidence of any ketoacidosis. We will follow the patient closely. Thank you for letting us participate in the care of this patient. MMODL / IJN: [id number] /
[2019-06-11 07:53] LABS: Glucose,Whole Blood 251 mg/dL (75-99)
[2019-06-11] MEDS: ACETAMINOPHEN TAB 325 MG TAB PO PRN (07:59)
[2019-06-11] MEDS: INSULIN DETEMIR (LEVEMIR) 100 UNIT/ML SYR SQ SCH (08:00)
[2019-06-11] MEDS: INSULIN ASPART (NovoLOG) 100 UNIT/ML VIAL SQ SCH ×7 (08:00→21:00)
[2019-06-11] MEDS: SULFAMETHOX-TMP 800-160MG 1 EACH TAB PO SCH (08:33)
[2019-06-11] MEDS: buPROPion XL 150 MG TAB.ER.24H PO SCH (08:33)
[2019-06-11] MEDS: DIVALPROEX 250 MG TABLET.DR PO SCH (08:33)
[2019-06-11] MEDS: GABAPENTIN 100 MG CAP PO SCH ×3 (08:33→21:23)
[2019-06-11] MEDS: LISINOPRIL 5 MG TAB PO SCH (08:34)
[2019-06-11] MEDS: NICOTINE 14MG/24HR PATCH TRANSDERM SCH (08:34)
[2019-06-11 12:15] LABS: Glucose,Whole Blood 122 mg/dL (75-99)
[2019-06-11 12:41] LABS: Glucose,Whole Blood 124 mg/dL (75-99)
--- NOTE | 2019-06-11 13:39 | P.PN ---
Progress Note - Text Progress Note Date: 06/11/19 Subjective: Patient was seen today as a cross coverage for . The patient was evaluated, chart reviewed, case discussed with the treatment team. Patient reported poor sleep. Appetite was reported as "it could be better ". Patient has not been going to groups and other unit activities. The patient is compliant with his medications and denies any adverse reactions. Patient reports continued to feel depressed and having suicidal thoughts. He denies any hallucinations, or paranoid ideation. He reports continued to feel angry irritable and to some degree agitated. He denies manic symptoms including a euphoric mood, lack need to sleep due to unusual increased activities, or uninhibited irrational behavior. Objective: Vitals has been reviewed. MENTAL STATUS EVALUATION: Appearance: Appears older stated age, poorly groomed, below average body built, and no specific features. Gait/ posture: Steady gait, normal arm swinging, no abnormal movements, with relaxed posture. Attitude and Behavior: not engaged, superficial, not fully cooperative, , poor eye contact during course of interview. Motor Activity: normal psychomotor activity. Speech: spontaneous, normal rate, rhythm, and articulation. normal volume. not pressured. Language: Articulating, naming objects and repeat phrases. Mood: depressed Affect: Restricted. Thought process: Linear, goal-directed. Association: Not tangential, not circumstantial. Thought content: denies delusions, reports suicidal thoughts, denies homicidal thoughts, denies intentions, or plans. Perception: denies any hallucinations Alertness: No impairment. Concentration: impaired Orientation: Oriented to time, place, person, and situation Insight regarding psychiatric condition: fair Judgment regarding daily activities and social situation: fair Impulse control: fair Assessment: Bipolar disorder, most recent episode depressive without psychotic features. Rule out generalized anxiety disorder. Methamphetamine use disorder, severe. Cocaine use disorder, severe. Rule out alcohol use disorder. Rule out opioid use disorder. Diabetes. Plan: Continue inpatient level of care due to need for further stabilization on medications. Continue the patient under 15 minutes safe check for safety. Psych education regarding his diagnosis, and treatment option. The patient will also be provided with individual therapy, group therapy, substance abuse counseling, gain insight, and coping skills. Consider medical consultation if any acute medical issue arise. Medications: Increase Depakote 500 mg twice daily for mood stabilization. Continue Neurontin 200 mg 3 times a day daily for anxiety. Increase trazodone 100 mg at bedtime as needed for insomnia. Continue Wellbutrin XL 150 mg daily tomorrow for depression symptoms. Labs: Monitor Depakote level as clinically indicated. Obtain Depakote level on Wednesday. The patient will be assessed on daily basis for his depression, suicidal ideation, and will be discharged back to his outpatient mental health provider upon stabilization. EXPECTED LENGTH OF STAY: 5-7 days.
[2019-06-11 14:07] VITALS: BMI 22.1
[2019-06-11 17:24] LABS: Glucose,Whole Blood 370 mg/dL (75-99)
[2019-06-11 20:16] LABS: Glucose,Whole Blood 132 mg/dL (75-99)
[2019-06-11] MEDS: DIVALPROEX ER 500 MG TAB.ER.24H PO SCH (21:23)
[2019-06-11] MEDS: traZODone HCL 50 MG TAB PO PRN (21:26)
[2019-06-12 07:52] LABS: Glucose,Whole Blood 364 mg/dL (75-99)
[2019-06-12] MEDS: INSULIN ASPART (NovoLOG) 100 UNIT/ML VIAL SQ SCH ×8 (07:54→20:06)
[2019-06-12] MEDS: INSULIN DETEMIR (LEVEMIR) 100 UNIT/ML SYR SQ SCH (07:56)
[2019-06-12] MEDS: buPROPion XL 150 MG TAB.ER.24H PO SCH ×2 (10:03→11:46)
[2019-06-12] MEDS: GABAPENTIN 100 MG CAP PO SCH ×4 (10:03→20:08)
[2019-06-12] MEDS: DIVALPROEX ER 500 MG TAB.ER.24H PO SCH ×3 (10:03→20:08)
[2019-06-12] MEDS: SULFAMETHOX-TMP 800-160MG 1 EACH TAB PO SCH ×2 (10:04→11:47)
[2019-06-12] MEDS: LISINOPRIL 5 MG TAB PO SCH ×2 (10:04→11:47)
[2019-06-12] MEDS: NICOTINE 14MG/24HR PATCH TRANSDERM SCH (10:04)
[2019-06-12] MEDS: LORazepam 1 MG TAB PO PRN ×2 (12:45→20:08)
[2019-06-12 12:52] LABS: Glucose,Whole Blood 133 mg/dL (75-99)
--- NOTE | 2019-06-12 14:07 | P.PN ---
Subjective Progress Note Date: 06/12/19 Principal diagnosis: Unspecified mood disorder, rule out mood disorder secondary to amphetamine and/or cocaine use, methamphetamine use disorder severe, cocaine use disorder severe, rule out bipolar disorder I reviewed the medical record, interviewed the patient and discuss his treatment and treatment plan during team meeting. He is a 34-year-old homeless male who has a history of opiate, cocaine and methamphetamine use disorder. He reported that he has been abstinent from opiates for approximately 4 yearsy. He presented to the psychiatric unit with complaints of depression and suicidal ideation in the context of intravenous use of cocaine and amphetamines. He was irritable and complained of subjective anxiety. He specifically requested a referral to the [facility] in [facility]. He declined a referral to the [facility] alleging that the program does not offer some services. He expressed feelings of hopelessness and helplessness regarding his life in a substance abuse problems. He recognizes that he is not been managing his diabetes and talked about not caring for the consequences of not managing his diabetes. Objective - Vital Signs Vital signs: Vital Signs Temp 98 F 06/11/19 06:31 Pulse 65 06/11/19 06:31 Resp 16 06/11/19 06:31 BP 109/58 06/11/19 06:31 Pulse Ox 98 06/10/19 04:34 Intake & Output 06/11/19 06/12/19 06/12/19 18:59 06:59 18:59 Weight 67.9 kg - Exam He presented as a thin, almost emaciated appearing middle-aged male with multiple tattoos. He was restless and irritable. He had no prominent physical abnormalities. He had a distressed facial expression. He was alert and oriented to person, place and time. His speech was a bit pressured. He was irritable and angry. He expressed suicidal ideation without intent or plan. He denied homicidal ideation. He expressed feelings of hopelessness, helplessness and worthlessness. He did not express phobias, ideas reference, paranoid ideation or delusional thoughts. Her thinking was concrete but his associations were coherent, logical and goal directed. He denied hallucinations and did not appear to be responding to internal stimuli. - Labs CBC & Chem 7: 06/09/19 20:50 06/09/19 20:50 Labs: Abnormal Lab Results - Last 24 Hours (Table) 06/11/19 06/11/19 06/12/19 Range/Units 17:20 20:14 07:51 POC Glucose (mg/dL) 370 H 132 H 364 H (75-99) mg/dL 06/12/19 Range/Units 12:38 POC Glucose (mg/dL) 133 H (75-99) mg/dL Assessment and Plan Assessment: He is markedly irritable and angry homeless man who has history of a substance use disorders. He recognizes a substance use problems and expressed an interest in long-term residential treatment. He also has a reported history of a bipolar illness which she takes on multiple psychotropic medications including Wellbutr in, Depakote, Neurontin and trazodone. Plan: Continue inpatient hospitalization. Safety precautions. [employer] dep[employer] worker to coordinate aftercare services including referral for residential substance abuse treatment. Continue Wellbutrin XL 150 mg daily and titrated clinical response and tolerance. Continue Depakote ER 500 mg by mouth twice a day and obtain serum valproic acid level at steady state. Continue gabapentin 200 mg by mouth 3 times a day and trazodone 100 mg at bedtime when necessary for sleep. Ativan 1 mg by mouth 3 times a day for anxiety or agitation. Encourage participation in therapeutic groups and activities. Evaluate clinical status response to tr eatment daily basis.
[2019-06-12 17:27] LABS: Glucose,Whole Blood 391 mg/dL (75-99)
[2019-06-12 20:02] LABS: Glucose,Whole Blood 157 mg/dL (75-99)
[2019-06-12] MEDS: traZODone HCL 50 MG TAB PO PRN (20:50)
[2019-06-13 06:46] VITALS: RESP 18
[2019-06-13 08:09] LABS: Glucose,Whole Blood 376 mg/dL (75-99)
[2019-06-13] MEDS: INSULIN DETEMIR (LEVEMIR) 100 UNIT/ML SYR SQ SCH (08:27)
[2019-06-13] MEDS: INSULIN ASPART (NovoLOG) 100 UNIT/ML VIAL SQ SCH ×7 (08:28→23:19)
[2019-06-13] MEDS: DIVALPROEX ER 500 MG TAB.ER.24H PO SCH ×2 (08:31→20:49)
[2019-06-13] MEDS: LISINOPRIL 5 MG TAB PO SCH (08:31)
[2019-06-13] MEDS: GABAPENTIN 100 MG CAP PO SCH ×3 (08:32→20:49)
[2019-06-13] MEDS: NICOTINE 14MG/24HR PATCH TRANSDERM SCH (08:33)
[2019-06-13] MEDS: LORazepam 1 MG TAB PO PRN ×3 (08:34→20:47)
[2019-06-13 12:28] LABS: Glucose,Whole Blood 184 mg/dL (75-99)
--- NOTE | 2019-06-13 15:11 | P.PN ---
Subjective Progress Note Date: 06/13/19 Principal diagnosis: Unspecified mood disorder, rule out mood disorder secondary to amphetamine and/or cocaine use, methamphetamine use disorder severe, cocaine use disorder severe, rule out bipolar disorder I reviewed the medical record, interviewed the patient and discuss his treatment and treatment plan during team meeting. He reported that he is feeling better today because he recently spoke to friends who offered him a room at their house. Neither of them drink or use drugs and they told him that if he were to relapse he would have to lease their home. He would rather live with them and return to a residential substance abuse rehabilitation program. He talked about "hearing at all before" and he alleged that he would not benefit from additional substance abuse services. He continues to feel depressed and anxious but denied current thoughts of or suicide. He continues to request when necessary medications for complaints of subjective anxiety. Objective - Vital Signs Vital signs: Vital Signs Temp 98.3 F 06/13/19 06:20 Pulse 84 06/13/19 06:20 Resp 18 06/13/19 06:20 BP 118/64 06/13/19 06:20 Pulse Ox 97 06/13/19 06:20 - Exam He presented as a thin, almost emaciated appearing middle-aged male with multiple tattoos. He was not restless and much less irritable than yesterday. He had a distressed facial expression. He was alert and oriented to person, place and time. His speech was spontaneous with normal rate, rhythm and volume. He was less irritable and angry. He denied suicidal ideation. He denied homicidal ideation. He feels more hopeful about the future. He did not express phobias, ideas reference, paranoid ideation or delusional thoughts. Her thinking was concrete but his associations were coherent, logical and goal directed. He denied hallucinations and did not appear to be responding to in ternal stimuli. - Labs CBC & Chem 7: 06/09/19 20:50 06/09/19 20:50 Labs: Abnormal Lab Results - Last 24 Hours (Table) 06/12/19 06/12/19 06/13/19 Range/Units 17:25 19:56 08:07 POC Glucose (mg/dL) 391 H 157 H 376 H (75-99) mg/dL 06/13/19 Range/Units 12:11 POC Glucose (mg/dL) 184 H (75-99) mg/dL Assessment and Plan Assessment: He He is less irritable and angry than on admission. He is compliant with medication and is posed no management problem on the unit. Plan: Continue inpatient hospitalization. Safety precautions. Refer him for outpatient mental health and/or substance abuse services after discharge. Continue Wellbutrin XL 150 mg daily and titrated clinical response and tolerance. Continue Depakote ER 500 mg by mouth twice a day and obtain serum valproic acid level at steady state. Continue gabapentin 200 mg by mouth 3 times a day and trazodone 100 mg at bedtime when necessary for sleep. Ativan 1 mg by mouth 3 times a day for anxiety or agitation. Encourage participation in therapeutic groups and activities. Evaluate clinical status response to treatment daily basis.
[2019-06-13 17:39] LABS: Glucose,Whole Blood 383 mg/dL (75-99)
[2019-06-13] MEDS: ACETAMINOPHEN TAB 325 MG TAB PO PRN (17:46)
[2019-06-13 19:58] LABS: Glucose,Whole Blood 146 mg/dL (75-99)
[2019-06-13] MEDS: traZODone HCL 50 MG TAB PO PRN (20:48)
[2019-06-14 06:52] VITALS: BP 124/67; PULSE 71; TEMP 98.5
[2019-06-14 07:48] LABS: Glucose,Whole Blood 477 mg/dL (75-99)
[2019-06-14] MEDS: INSULIN DETEMIR (LEVEMIR) 100 UNIT/ML SYR SQ SCH (08:06)
[2019-06-14] MEDS: INSULIN ASPART (NovoLOG) 100 UNIT/ML VIAL SQ SCH ×4 (08:07→12:40)
[2019-06-14] MEDS: buPROPion XL 150 MG TAB.ER.24H PO SCH (08:07)
[2019-06-14] MEDS: LISINOPRIL 5 MG TAB PO SCH (08:08)
[2019-06-14] MEDS: NICOTINE 14MG/24HR PATCH TRANSDERM SCH (08:08)
[2019-06-14] MEDS: DIVALPROEX ER 500 MG TAB.ER.24H PO SCH ×2 (08:08→09:58)
[2019-06-14] MEDS: GABAPENTIN 100 MG CAP PO SCH ×2 (08:08→16:53)
[2019-06-14] MEDS: LORazepam 1 MG TAB PO PRN ×2 (08:25→16:52)
[2019-06-14 12:33] LABS: Glucose,Whole Blood 213 mg/dL (75-99)
--- NOTE | 2019-06-14 12:53 | P.DS ---
Providers Date of admission: 06/10/19 03:15 Attending physician: Jonathan Zendejas MD Consults: 06/10/19 03:18 Consult Physician Routine Consulting Provider: Fozia Cadet Consult Reason/Comments: Medical H and P Do you want consulting provider notified?: Yes, Notify in am Primary care physician: Hunter Guerrero - Discharge Diagnosis(es) (1) Suicidal ideation Current Visit: Yes Status: Resolved Priority: Low (2) Mood disorder Current Visit: Yes Status: Chronic Priority: Medium (3) Methamphetamine use disorder, severe Current Visit: Yes Status: Chronic Priority: High (4) Cocaine use disorder, severe, dependence Current Visit: Yes Status: Chronic Priority: High (5) Lack of housing Current Visit: Yes Status: Acute (6) Insulin dependent diabetes mellitus Current Visit: Yes Status: Acute Priority: High (7) Tobacco use Current Visit: Yes Status: Chronic Priority: Low (8) Antisocial personality disorder Current Visit: Yes Status: Chronic Priority: High Hospital Course: He is a 34-year-old single male who has history of a substance use disorder and insulin-dependent diabetes mellitus. He presented to the psychiatric unit with complaints of feeling depressed and having thoughts of suicide. He was uncooperative with the initial assessment. He was irritable and guarded. He expressed feelings of depression, hopelessness and helplessness. He was thinking about overdosing on cocaine and methamphetamine. He was injecting amphetamine and cocaine prior to admission. He also has a history of IV heroin use. His UDS was positive for amphetamines, methamphetamines and cocaine. He was living with a drug dealer and perseverate on needing to "move out". At the end of his hospital stay He stated that he came to the hospital and complaints of suicide because he did not want to live in a intermediate; "I've been there before and that woman is a bitch". We admitted him to the psychiatric unit initially under the care of . We provided a biopsychosocial assessment. The customer service and sales consultant mens locker room attendant completed initial physical exam and medical history and diagnosed diabetes mellitus type 2 uncontrolled with hyper and hypoglycemia, hyponatremia, increased WBC and anemia. The customer service and sales consultant recommended Levemir 50 minute 50 units daily and Accu- Cheks before meals and at bedtime and 3 units of NovoLog per sliding scale. His blood sugar on admission was 620 and his POC glucose ranged from 48-477. We restarted his outpatient medications including Wellbutrin XL 150 mg daily, Depakote ER 500 mg twice a day, Neurontin 200 mg by mouth 3 times a day, lisinopril 5 mg daily and trazodone 100 mg at bedtime. He requested the maximum daily dose of lorazepam 1 mg by mouth 3 times a day when necessary for anxiety. He spent much of the hospital stay in his room coming out for meals. He seldom participated in therapeutic groups and activities. When she came out of his room he had frequent conflict with staff and other residents on the unit. He initially requested referral for long-term residential substance abuse treatment but abruptly changed his mind after finding out residents. He alleged that he could not live with "friend" who was support his abstinence from methamphetamine and cocaine. At time of discharge she presented as a short stature and thin 34-year-old male who is irritable but appropriate. He made eye contact and attended to interview. He had multiple tattoos but no prominent physical abnormalities. He had a distressed facial expression. He was alert and oriented to person, place and time. He showed no abnormality of psychomotor activity. He was not restless or agitated. Her speech was spontaneous with normal rate, rhythm and volume. His affect was labile and at times intense. He denied suicidal ideation or wishes. He denied homicidal ideation. He denied such depressive cognitions as hopelessness, helplessness or worthlessness. He did not express ideas reference, paranoid ideation or delusional thoughts. His thinking was abstract and associations were coherent and logical. He denied hallucinations and did not appear to be responding to internal stimuli. Patient Condition at Discharge: Fair Plan - Discharge Summary New Discharge Prescriptions: New Divalproex ER [Depakote ER] 500 mg PO BID 30 Days #60 tab.er.24h traZODone HCL [Desyrel] 100 mg PO HS PRN 30 Days #30 tab PRN Reason: Insomnia Nicotine 14Mg/24Hr Patch [Habitrol] 1 patch TRANSDERM DAILY 14 Days #14 patch Insulin Detemir (Levemir) [Levemir] 50 unit SQ DAILY@0700 30 Days #30 syr Gabapentin [Neurontin] 200 mg PO TID 30 Days #90 cap INSULIN ASPART (NovoLOG) [NovoLOG (formulary)] 3 unit SQ AC-TID 30 Days #3 vial Continue buPROPion XL [Wellbutrin XL] 150 mg PO DAILY 30 Days #30 tab Lisinopril [Zestril] 5 mg PO DAILY 30 Days #30 tab Discontinued Gabapentin 800 mg PO TID Divalproex [Depakote] 500 mg PO BID INSULIN ASPART (NovoLOG) [NovoLOG] See Protocol SQ AC-TID traMADol HCL [Ultram] 50 mg PO Q12HR PRN PRN Reason: Pain traZODone HCL 150 mg PO HS PRN PRN Reason: Insomnia Discharge Medication List Divalproex ER [Depakote ER] 500 mg PO BID 30 Days #60 tab.er.24h 06/14/19 [Rx] Gabapentin [Neurontin] 200 mg PO TID 30 Days #90 cap 06/14/19 [Rx] INSULIN ASPART (NovoLOG) [NovoLOG (formulary)] 3 unit SQ AC-TID 30 Days #3 vial 06/14/19 [Rx] Insulin Detemir (Levemir) [Levemir] 50 unit SQ DAILY@0700 30 Days #30 syr 06/14/19 [Rx] Lisinopril [Zestril] 5 mg PO DAILY 30 Days #30 tab 06/14/19 [Rx] Nicotine 14Mg/24Hr Patch [Habitrol] 1 patch TRANSDERM DAILY 14 Days #14 patch 06/14/19 [Rx] buPROPion XL [Wellbutrin XL] 150 mg PO DAILY 30 Days #30 tab 06/14/19 [Rx] traZODone HCL [Desyrel] 100 mg PO HS PRN 30 Days #30 tab 06/14/19 [Rx] Follow up Appointment(s)/Referral(s): [facility] [Outside] - 06/15/19 8:30 am (Walk in intake 06/15/19 8:30 - 3:00 pm) Yolanda Harrison MD [Primary Care Provider] - 1-2 days Activity/Diet/Wound Care/Special Instructions: Activity and diet as tolerated. Avoid the use of street drugs and alcohol. Take all medications as prescribed. When you are in need of refills on your medications please contact your medical provider and/or outpatient psychiatrist to have this done. Please go to scheduled outpatient appointment for aftercare treatment. If symptoms return or become worse, call the crisis line at and/or go to the nearest emergency room for evaluation. Discharge Disposition: HOME SELF-CARE
== END 2019-06-14 17:20 | disposition home or self-care (01) | DRG 885 ==
LOC: EC 21:33 → 3MHU 06-10 03:15
PROVIDERS: ADMIT Psychiatry & Neurology Psychiatry; ATTEND Psychiatry & Neurology Psychiatry
DX: F31.30 Bipolar disorder, current episode depressed, mild or moderate severity, unspecified (principal); E87.1 Hypo-osmolality and hyponatremia; F14.20 Cocaine dependence, uncomplicated; F15.20 Other stimulant dependence, uncomplicated; R45.851 Suicidal ideations; F17.219 Nicotine dependence, cigarettes, with unspecified nicotine-induced disorders; D64.9 Anemia, unspecified; E10.65 Type 1 diabetes mellitus with hyperglycemia; E10.649 Type 1 diabetes mellitus with hypoglycemia without coma; Z79.4 Long term (current) use of insulin; F41.0 Panic disorder [episodic paroxysmal anxiety]; F41.1 Generalized anxiety disorder; F43.10 Post-traumatic stress disorder, unspecified; F60.2 Antisocial personality disorder; Z59.0 Homelessness; H92.02 Otalgia, left ear; D72.829 Elevated white blood cell count, unspecified; Z79.899 Other long term (current) drug therapy; Z83.3 Family history of diabetes mellitus; Z91.19 Patient's noncompliance with other medical treatment and regimen; Z91.5 Personal history of self-harm
CPT/HCPCS: 36415; 80048; 80061; 80076; 80164; 80306; 82009; 82075; 83036; 84443; 85025; 96361; 96374; 99285

== ENCOUNTER 2020-11-11 10:02 | Observation (INO) | payer OTHER ==
[2020-11-11] MEDS ORDERED: SODIUM CHLORIDE 0.9% 1,000 ML IV STA (11:33)
[2020-11-11] MEDS ORDERED: ONDANSETRON 4 MG/2 ML VIAL IVP STA (11:33)
[2020-11-11 11:38] LABS: Glucose,Whole Blood 433 mg/dL (75-99)
[2020-11-11] MEDS ORDERED: INSULIN ASPART (NovoLOG) 100 UNIT/ML VIAL SQ ONE (11:39)
[2020-11-11 12:05] LABS: Appearance,Urine Clear (Clear); Bilirubin,Urine Negative (Negative); Blood,Urine Negative (Negative); Color,Urine Light Yellow; Glucose,Urine (UA) 4+ (Negative); Leukocyte Esterase,Urine Negative (Negative); Nitrite,Urine Negative (Negative); Protein,Urine Negative (Negative); Specific Gravity,Urine 1.019 (1.001-1.035); Urobilinogen,Urine <2.0 mg/dL (<2.0)
[2020-11-11 12:08] LABS: Basophils # (A) 0.1 k/uL (0-0.2); Basophils % (A) 0 %; Eosinophils # (A) 0.1 k/uL (0-0.7); Eosinophils % (A) 1 %; HCT 39.5 % (39.0-53.0); HGB 13.2 gm/dL (13.0-17.5); Ketones,Urine 2+ (Negative); Lymphocytes # (A) 1.8 k/uL (1.0-4.8); Lymphocytes % (A) 14 %; MCH 31.9 pg (25.0-35.0); MCHC 33.5 g/dL (31.0-37.0); MCV 95.4 fL (80.0-100.0); Monocytes % (A) 8 %; Neutrophils # (A) 10.1 k/uL (1.3-7.7); Neutrophils % (A) 77 %; Platelet Count 214 k/uL (150-450); RBC 4.14 m/uL (4.30-5.90); RDW 13.3 % (11.5-15.5); WBC 13.2 k/uL (3.8-10.6)
[2020-11-11 12:27] LABS: ALT 22 U/L (4-49); AST 38 U/L (17-59); African American GFR (CKD) 48 (>60 ml/min/1.73 sqM); Albumin 4.6 g/dL (3.5-5.0); Alkaline Phosphatase 74 U/L (38-126); Anion Gap 23 mmol/L; Blood Urea Nitrogen 50 mg/dL (9-20); Calcium 9.7 mg/dL (8.4-10.2); Carbon Dioxide 13 mmol/L (22-30); Chloride 96 mmol/L (98-107); Glucose 490 mg/dL (74-99); Lipase <10 U/L (23-300); Non-African American GFR(CKD) 41 (>60 ml/min/1.73 sqM); Potassium 5.8 mmol/L (3.5-5.1); Sodium 132 mmol/L (137-145)
--- NOTE | 2020-11-11 13:15 | ED ---
General Adult HPI - General Chief complaint: Recheck/Abnormal Lab/Rx Stated complaint: diabetes, no insulin in 3 days Time Seen by Provider: 11/11/20 11:32 Source: patient Mode of arrival: ambulatory Limitations: no limitations - History of Present Illness Initial comments: 35-year-old male with type 1 diabetes presents emergency Department with chief c omplaint of medication refill. Patient states he recently was [facility] [facility] and does not have insulin nor a glucometer. States she has not eaten for the last 2 days because he knows that his sugar will increase. He denies any nausea vomiting diarrhea. States he does not feel like he is in DKA. States he does not want to stay here and would only like a refill for his insulin medication. He denies any other complaints. - Related Data Previous Rx's Medication Instructions Recorded Divalproex ER [Depakote ER] 500 mg PO BID 30 Days #60 06/14/19 tab.er.24h Gabapentin [Neurontin] 200 mg PO TID 30 Days #90 cap 06/14/19 INSULIN ASPART (NovoLOG) [NovoLOG 3 unit SQ AC-TID 30 Days #3 vial 06/14/19 (formulary)] Insulin Detemir (Levemir) [Levemir] 50 unit SQ DAILY@0700 30 Days #30 06/14/19 syr Nicotine 14Mg/24Hr Patch [Habitrol] 1 patch TRANSDERM DAILY 14 Days 06/14/19 #14 patch buPROPion XL [Wellbutrin XL] 150 mg PO DAILY 30 Days #30 tab 06/14/19 lisinopriL [Zestril] 5 mg PO DAILY 30 Days #30 tab 06/14/19 traZODone HCL [Desyrel] 100 mg PO HS PRN 30 Days #30 tab 06/14/19 Allergies Allergy/AdvReac Type Severity Reaction Status Date / Time No Known Allergies Allergy Verified 11/11/20 10:40 Review of Systems ROS Statement: Those systems with pertinent positive or pertinent negative responses have been documented in the HPI. ROS Other: All systems not noted in ROS Statement are negative. Past Medical History Past Medical History: Diabetes Mellitus History of Any Multi-Drug Resistant Organisms: None Reported Past Surgical History: No Surgical Hx Reported Past Anesthesia/Blood Transfusion Reactions: No Reported Reaction Past Psychological History: Anxiety, Bipolar, Depression, Panic Disorder, PTSD Smoking Status: Never smoker Past Alcohol Use History: None Reported Past Drug Use History: Cocaine, Marijuana, Methamphetamine General Exam Limitations: no limitations General appearance: alert, in no apparent distress Head exam: Present: atraumatic, normocephalic, normal inspection Eye exam: Present: normal appearance, PERRL, EOMI Pupils: Present: normal accommodation ENT exam: Present: normal exam, normal oropharynx, mucous membranes moist Neck exam: Present: normal inspection, full ROM. Absent: tenderness, lymphadenopathy, thyromegaly Respiratory exam: Present: normal lung sounds bilaterally, other (fruity breath). Absent: respiratory distress, wheezes Cardiovascular Exam: Present: regular rate, normal rhythm, normal heart sounds Extremities exam: Present: normal inspection, full ROM, normal capillary refill. Absent: tenderness, pedal edema, joint swelling Back exam: Present: normal inspection, full ROM. Absent: tenderness, CVA tenderness (R), CVA tenderness (L) Neurological exam: Present: alert, oriented X3 Psychiatric exam: Present: normal affect, normal mood Skin exam: Present: warm, dry, intact, normal color Course Vital Signs 11/11/20 10:37 Temperature 98.7 F Pulse Rate 103 H Respiratory 20 Rate Blood Pressure 132/67 O2 Sat by Pulse 97 Oximetry Medical Decision Making - Medical Decision Making 35-year-old male with type 1 diabetes presents to emergency Department with a chief complaint of medication refill. Patient was initially refusing to stay in the emergency department. Accu-Chek 430. Laboratory work reveals DKA with an anion gap of 23. Positive ketones in the urine. Positive acetone. Patient was initially started on 10 units of NovoLog and 1 L IV bolus fluids. However, I was able to speak with him and he decided to stay. Started on DKA protocol. He will be admitted for further medical management. Case discussed with Dr. Washburn. Admitting is - Lab Data Result diagrams: 11/11/20 11:55 11/11/20 11:55 Lab Results 11/11/20 11/11/20 11/11/20 Range/Units 11:36 11:55 11:55 WBC 13.2 H (3.8-10.6) k/uL RBC 4.14 L (4.30-5.90) m/uL Hgb 13.2 (13.0-17.5) gm/dL Hct 39.5 (39.0-53.0) % MCV 95.4 (80.0-100.0) fL MCH 31.9 (25.0-35.0) pg MCHC 33.5 (31.0-37.0) g/dL RDW 13.3 (11.5-15.5) % Plt Count 214 (150-450) k/uL MPV 8.0 Neutrophils % 77 % Lymphocytes % 14 % Monocytes % 8 % Eosinophils % 1 % Basophils % 0 % Neutrophils # 10.1 H (1.3-7.7) k/uL Lymphocytes # 1.8 (1.0-4.8) k/uL Monocytes # 1.0 (0-1.0) k/uL Eosinophils # 0.1 (0-0.7) k/uL Basophils # 0.1 (0-0.2) k/uL Sodium (137-145) mmol/L Potassium (3.5-5.1) mmol/L Chloride (98-107) mmol/L Carbon Dioxide (22-30) mmol/L Anion Gap mmol/L BUN (9-20) mg/dL Creatinine (0.66-1.25) mg/dL Est GFR (CKD-EPI)AfAm (>60 ml/min/1.73 sqM) Est GFR (CKD-EPI)NonAf (>60 ml/min/1.73 sqM) Glucose (74-99) mg/dL POC Glucose (mg/dL) 433 H (75-99) mg/dL POC Glu Mannequin Refinisher ID Richa Pedraza Calcium (8.4-10.2) mg/dL Total Bilirubin (0.2-1.3) mg/dL AST (17-59) U/L ALT (4-49) U/L Alkaline Phosphatase (38-126) U/L Total Protein (6.3-8.2) g/dL Albumin (3.5-5.0) g/dL Lipase (23-300) U/L Urine Color Light Yellow Urine Appearance Clear (Clear) Urine pH 5.0 (5.0-8.0) Ur Specific [place] 1.019 (1.001-1.035) Urine Protein Negative (Negative) Urine Glucose (UA) 4+ H (Negative) Urine Ketones 2+ H (Negative) Urine Blood Negative (Negative) Urine Nitrite Negative (Negative) Urine Bilirubin Negative (Negative) Urine Urobilinogen <2.0 (<2.0) mg/dL Ur Leukocyte Esterase Negative (Negative) Acetone, Qual (Negative) 11/11/20 Range/Units 11:55 WBC (3.8-10.6) k/uL RBC (4.30-5.90) m/uL Hgb (13.0-17.5) gm/dL Hct (39.0-53.0) % MCV (80.0-100.0) fL MCH (25.0-35.0) pg MCHC (31.0-37.0) g/dL RDW (11.5-15.5) % Plt Count (150-450) k/uL MPV Neutrophils % % Lymphocytes % % Monocytes % % Eosinophils % % Basophils % % Neutrophils # (1.3-7.7) k/uL Lymphocytes # (1.0-4.8) k/uL Monocytes # (0-1.0) k/uL Eosinophils # (0-0.7) k/uL Basophils # (0-0.2) k/uL Sodium 132 L (137-145) mmol/L Potassium 5.8 H (3.5-5.1) mmol/L Chloride 96 L (98-107) mmol/L Carbon Dioxide 13 L (22-30) mmol/L Anion Gap 23 mmol/L BUN 50 H (9-20) mg/dL Creatinine 2.01 H (0.66-1.25) mg/dL Est GFR (CKD-EPI)AfAm 48 (>60 ml/min/1.73 sqM) Est GFR (CKD-EPI)NonAf 41 (>60 ml/min/1.73 sqM) Glucose 490 H (74-99) mg/dL POC Glucose (mg/dL) (75-99) mg/dL POC Glu Mannequin Refinisher ID Calcium 9.7 (8.4-10.2) mg/dL Total Bilirubin 1.0 (0.2-1.3) mg/dL AST 38 (17-59) U/L ALT 22 (4-49) U/L Alkaline Phosphatase 74 (38-126) U/L Total Protein 7.0 (6.3-8.2) g/dL Albumin 4.6 (3.5-5.0) g/dL Lipase <10 L (23-300) U/L Urine Color Urine Appearance (Clear) Urine pH (5.0-8.0) Ur Specific [place] (1.001-1.035) Urine Protein (Negative) Urine Glucose (UA) (Negative) Urine Ketones (Negative) Urine Blood (Negative) Urine Nitrite (Negative) Urine Bilirubin (Negative) Urine Urobilinogen (<2.0) mg/dL Ur Leukocyte Esterase (Negative) Acetone, Qual Positive (Negative) Disposition Clinical Impression: DKA (diabetic ketoacidosis) Disposition: ADMITTED IP TO THIS HOSP Condition: Fair Is patient prescribed a controlled substance at d/c from ED?: No Referrals: Yolanda Harrison MD [Primary Care Provider] - 1-2 days Time of Disposition: 13:16
[2020-11-11 13:23] LABS: Glucose,Whole Blood 402 mg/dL (75-99)
[2020-11-11] MEDS: SODIUM CHLORIDE 0.9% 1,000 ML IV SCH ×2 (13:29→19:24)
[2020-11-11] MEDS: INSULIN REGULAR 100 UNIT in SODIUM CHLORIDE 0.9% 100 ML IV SCH (13:48)
[2020-11-11 14:05] LABS: Glucose,Whole Blood 284 mg/dL (75-99)
[2020-11-11 14:39] LABS: Glucose,Whole Blood 197 mg/dL (75-99)
[2020-11-11] MEDS: D5-0.45% NACL WITH KCL 20MEQ/L 1,000 ML IV SCH ×2 (14:44→22:56)
[2020-11-11 15:30] LABS: Glucose,Whole Blood 122 mg/dL (75-99)
[2020-11-11 16:08] LABS: Potassium 4.2 mmol/L (3.5-5.1)
[2020-11-11 16:34] LABS: Glucose,Whole Blood 66 mg/dL (75-99)
[2020-11-11 17:16] LABS: Glucose,Whole Blood 79 mg/dL (75-99)
[2020-11-11 17:43] LABS: Glucose,Whole Blood 95 mg/dL (75-99)
[2020-11-11 18:15] LABS: Glucose,Whole Blood 84 mg/dL (75-99)
[2020-11-11 19:07] LABS: Glucose,Whole Blood 104 mg/dL (75-99)
[2020-11-11] MEDS ORDERED: THIAMINE 100 MG/ML 2 ML VIAL IM STA (19:19)
[2020-11-11] MEDS ORDERED: LORazepam 2 MG/ML INJ IV PRN ×3 (19:19)
[2020-11-11 19:29] LABS: Glucose,Whole Blood 127 mg/dL (75-99)
[2020-11-11] MEDS: THIAMINE 100 MG TAB PO SCH (19:44)
[2020-11-11 20:29] LABS: African American GFR (CKD) >90 (>60 ml/min/1.73 sqM); Anion Gap 8 mmol/L; Blood Urea Nitrogen 42 mg/dL (9-20); Carbon Dioxide 23 mmol/L (22-30); Chloride 103 mmol/L (98-107); Glucose 185 mg/dL (74-99); Non-African American GFR(CKD) 89 (>60 ml/min/1.73 sqM); Potassium 4.4 mmol/L (3.5-5.1); Sodium 134 mmol/L (137-145)
[2020-11-11 21:16] LABS: Glucose,Whole Blood 211 mg/dL (75-99)
[2020-11-11 22:01] LABS: Glucose,Whole Blood 230 mg/dL (75-99)
--- NOTE | 2020-11-11 22:44 | P.HPIM ---
History of Present Illness H&P Date: 11/11/20 Chief Complaint: No Insulin for 3 days and did not eat Mr. Messina is a 35-year-old male with a past medical history of type 1 diabetes mellitus on insulin, anxiety with depression, PTSD, polysubstance abuse coming to the hospital stating that he could not take his insulin for the past 3 days. Patient states that [facility] and for the past 3 days he could not get insulin. He also mentions that he did not eat for the past couple of days but has been doing methamphetamine as he has substance abuse disorder. Patient states that he has been taking meth to keep himself high as he enjoys doing it. He is states that he has addiction issues. Patient felt weak tired and also had fruity odor to his breath. He states that he had diabetes for very long that he knows his sugars could be high so came into the emergency for insulin. On review of systems patient denies having any fevers chills or rigors. No cough or difficulty breathing. No chest pain or palpitations. No abdominal pain nausea vomiting or diarrhea. No dysuria or hematuria. Patient denies having any weakness of his extremities. Denies having any headaches, blurring of vision or weakness of his extremities. In the ER at the time of admission patient's temperature 98.7, heart rate 90s 200s, respiratory rate 20, blood pressure 132/67 saturating at 97% on room air. Patient had an EKG done in the ER showing sinus tachycardia with no ST or T wave changes. On reviewing the labs his white count of 13.2, hemoglobin 13.2, platelets 214. Sodium 132, pota ssium 5.8, chloride 96, bicarb 13, BUN 50, creatinine 2.01, blood sugar 400s to 500s, anion gap of 23. AST ALT within normal limits. Urine analysis positive for 2+ ketones and 4+ glucose. Review of Systems REVIEW OF SYSTEMS: CONSTITUTIONAL: weakness and fatigue HEENT: No headache, no neck stiffness, no blurring of vision CARDIOVASCULAR: no chest pain or palpitations PULMONARY: No cough or difficulty in breathing GASTROINTESTINAL: No Abdominal pain nausea vomiting or diarrhea NEUROLOGICAL: No weakness of extremities HEMATOLOGICAL: Denies any bleeding or petechiae. GENITOURINARY: Denies any burning micturition, frequency, or urgency. MUSCULOSKELETAL/RHEUMATOLOGICAL: Denies any joint pain, swelling, or any muscle pain. ENDOCRINE: Denies polyuria polydipsia or heat or cold intolerance The rest of the 14-point review of systems is negative. Past Medical History Past Medical History: Diabetes Mellitus History of Any Multi-Drug Resistant Organisms: None Reported Past Surgical History: No Surgical Hx Reported Past Anesthesia/Blood Transfusion Reactions: No Reported Reaction Past Psychological History: Anxiety, Bipolar, Depression, Panic Disorder, PTSD Smoking Status: Never smoker Past Alcohol Use History: None Reported Past Drug Use History: Cocaine, Marijuana, Methamphetamine Medications and Allergies Home Medications Medication Instructions Recorded Confirmed Type No Known Home Medications 11/11/20 11/11/20 History Allergies Allergy/AdvReac Type Severity Reaction Status Date / Time No Known Allergies Allergy Verified 11/11/20 13:44 Physical Exam Vitals: Vital Signs Temp Pulse Resp BP Pulse Ox 11/11/20 17:43 100 16 121/65 100 11/11/20 14:43 100 16 135/65 100 11/11/20 10:37 98.7 F 103 H 20 132/67 97 Intake and Output 11/11/20 11/11/20 11/11/20 06:59 14:59 22:59 Intake Total 18.279 Balance 18.279 Intake: Intake, IV Titration 18.279 Amount Insulin Regular 100 unit 18.279 In Sodium Chloride 0.9% 100 ml @ 0.1 UNITS/KG/HR 8.246 mls/hr IV .[id number] [facility] Rx#:[id number] Other: Weight 81.647 kg PHYSICAL EXAMINATION: GENERAL: Dishelved , poorly kempt , no acute distress, pressurized speech HEENT: Pupils are round and equally reacting to light. EOMI. No scleral icterus. No conjunctival pallor. CARDIOVASCULAR: S1 and S2 present. Tachycardia PULMONARY: Bilateral breath sounds positive. No wheeze or crackles. ABDOMEN: Soft,non -tender, normal bowel sounds. No guarding or rigidity. MUSCULOSKELETAL: No joint swelling or deformity. EXTREMITIES: No edema NEUROLOGICAL: Gross neurological examination did not reveal any focal deficits. SKIN:No rash Results CBC & Chem 7: 11/11/20 11:55 11/11/20 20:00 Labs: Abnormal Lab Results - Last 24 Hours (Table) 11/11/20 11/11/20 11/11/20 Range/Units 11:36 11:55 11:55 WBC 13.2 H (3.8-10.6) k/uL RBC 4.14 L (4.30-5.90) m/uL Neutrophils # 10.1 H (1.3-7.7) k/uL Sodium (137-145) mmol/L Potassium (3.5-5.1) mmol/L Chloride (98-107) mmol/L Carbon Dioxide (22-30) mmol/L BUN (9-20) mg/dL Creatinine (0.66-1.25) mg/dL Glucose (74-99) mg/dL POC Glucose (mg/dL) 433 H (75-99) mg/dL Lipase (23-300) U/L Urine Glucose (UA) 4+ H (Negative) Urine Ketones 2+ H (Negative) 11/11/20 11/11/20 11/11/20 Range/Units 11:55 13:21 14:03 WBC (3.8-10.6) k/uL RBC (4.30-5.90) m/uL Neutrophils # (1.3-7.7) k/uL Sodium 132 L (137-145) mmol/L Potassium 5.8 H (3.5-5.1) mmol/L Chloride 96 L (98-107) mmol/L Carbon Dioxide 13 L (22-30) mmol/L BUN 50 H (9-20) mg/dL Creatinine 2.01 H (0.66-1.25) mg/dL Glucose 490 H (74-99) mg/dL POC Glucose (mg/dL) 402 H 284 H (75-99) mg/dL Lipase <10 L (23-300) U/L Urine Glucose (UA) (Negative) Urine Ketones (Negative) 11/11/20 11/11/20 11/11/20 Range/Units 14:36 15:28 15:46 WBC (3.8-10.6) k/uL RBC (4.30-5.90) m/uL Neutrophils # (1.3-7.7) k/uL Sodium (137-145) mmol/L Potassium (3.5-5.1) mmol/L Chloride (98-107) mmol/L Carbon Dioxide 19 L (22-30) mmol/L BUN 46 H (9-20) mg/dL Creatinine 1.34 H (0.66-1.25) mg/dL Glucose 102 H (74-99) mg/dL POC Glucose (mg/dL) 197 H 122 H (75-99) mg/dL Lipase (23-300) U/L Urine Glucose (UA) (Negative) Urine Ketones (Negative) 11/11/20 Range/Units 16:33 WBC (3.8-10.6) k/uL RBC (4.30-5.90) m/uL Neutrophils # (1.3-7.7) k/uL Sodium (137-145) mmol/L Potassium (3.5-5.1) mmol/L Chloride (98-107) mmol/L Carbon Dioxide (22-30) mmol/L BUN (9-20) mg/dL Creatinine (0.66-1.25) mg/dL Glucose (74-99) mg/dL POC Glucose (mg/dL) 66 L (75-99) mg/dL Lipase (23-300) U/L Urine Glucose (UA) (Negative) Urine Ketones (Negative) Assessment and Plan Assessment: ASSESSMENT Diabetic ketoacidosis Anion gap metabolic acidosis secondary to above Acute kidney injury secondary to above Hyperkalemia Type 1 diabetes mellitus Polysubstance abuse disorder including cocaine, marijuana, methamphetamine Nicotine dependence PLAN: Patient had anion gap of 23 at the time of admission. He was started on an insulin drip. Patient's repeat blood sugars trended down and his gap closed. He will be transitioned to subcutaneous insulin, as long as he is able to tolerate p.o. intake. Will consult nephrology social worker for assistance regarding insulin. Continue with thiamine supplements. Patient to be monitored for wit hdrawal symptoms secondary to polysubstance abuse. Ativan on board as needed for anxiety and withdrawal symptoms. Further recommendations to follow depending on the progress of the patient.
[2020-11-11 23:08] LABS: Glucose,Whole Blood 169 mg/dL (75-99)
[2020-11-11 23:59] LABS: Glucose,Whole Blood 162 mg/dL (75-99)
[2020-11-12 00:59] LABS: Glucose,Whole Blood 153 mg/dL (75-99)
[2020-11-12 02:09] LABS: Glucose,Whole Blood 168 mg/dL (75-99)
[2020-11-12 02:28] VITALS: RESP 18
[2020-11-12 03:04] LABS: Glucose,Whole Blood 141 mg/dL (75-99)
[2020-11-12 04:16] LABS: Glucose,Whole Blood 143 mg/dL (75-99)
[2020-11-12 04:58] LABS: Glucose,Whole Blood 108 mg/dL (75-99)
[2020-11-12 05:55] LABS: Glucose,Whole Blood 191 mg/dL (75-99)
[2020-11-12] MEDS ORDERED: INSULIN DETEMIR (LEVEMIR) 100 UNIT/ML SYR SQ SCH (07:00)
[2020-11-12 07:02] LABS: Glucose,Whole Blood 289 mg/dL (75-99)
[2020-11-12] MEDS: D5-0.45% NACL WITH KCL 20MEQ/L 1,000 ML IV SCH ×3 (07:13→12:45)
[2020-11-12] MEDS: INSULIN REGULAR 100 UNIT in SODIUM CHLORIDE 0.9% 100 ML IV SCH (07:14)
[2020-11-12 08:03] LABS: Glucose,Whole Blood 335 mg/dL (75-99)
[2020-11-12 08:34] VITALS: TEMP 99.1
[2020-11-12] MEDS: THIAMINE 100 MG TAB PO SCH (08:36)
[2020-11-12] MEDS: INSULIN ASPART (NovoLOG) 100 UNIT/ML VIAL SQ SCH ×2 (08:36→12:29)
[2020-11-12 11:04] VITALS: BMI 24.6
[2020-11-12 11:38] LABS: Glucose,Whole Blood 170 mg/dL (75-99)
[2020-11-12 13:00] VITALS: BP 149/81; PULSE 97
--- NOTE | 2020-11-13 00:58 | P.DS ---
Providers Date of admission: 11/11/20 13:09 Expected date of discharge: 11/12/20 Attending physician: Eva Eid Primary care physician: Hunter Covarrubias [facility] Course: Mr. Messina is a 35-year-old male with a past medical history of type 1 diabetes mellitus on insulin, anxiety with depression, PTSD, polysubstance abuse coming to the hospital stating that he could not take his insulin for the past 3 days. Patient states that he was recently released from the group home and for the past 3 days he could not get insulin. He also mentions that he did not eat for the past couple of days but has been doing methamphetamine as he has substance abuse disorder. Patient states that he has been taking meth to keep himself high as he enjoys doing it. He is states that he has addiction issues. Patient felt weak tired and also had fruity odor to his breath. He states that he had diabetes for very long that he knows his sugars could be high so came into the emergency for insulin. On review of systems patient denies having any fevers chills or rigors. No cough or difficulty breathing. No chest pain or palpitations. No abdominal pain nausea vomiting or diarrhea. No dysuria or hematuria. Patient denies having any weakness of his extremities. Denies having any headaches, blurring of vision or weakness of his extremities. In the ER at the time of admission patient's temperature 98.7, heart rate 90s 200s, respiratory rate 20, blood pressure 132/67 saturating at 97% on room air. Patient had an EKG done in the ER showing sinus tachycardia with no ST or T wave changes. On reviewing the labs his white count of 13.2, hemoglobin 13.2, platelets 214. Sodium 132, potassium 5.8, chloride 96, bicarb 13, BUN 50, creatinine 2.01, blood sugar 400s to 500s, anion gap of 23. AST ALT within normal limits. Urine analysis positive for 2+ ketones and 4+ glucose. Hospital course- Patient had anion gap of 23 at the time of admission. He was started on an insulin drip. Patient's repeat blood sugars trended down and his gap closed. He was transitioned to subcutaneous insulin, as he was able to tolerate p.o. intake.Consulted social media designer for assistance regarding insulin. Continue with thiamine supplements. Patient to be monitored for withdrawal symptoms secondary to polysubstance abuse. Ativan on board as needed for anxiety and withdrawal symptoms. Patient's blood sugars improved, they have been trending down but still high. Patient insisted on discharging him otherwise that he would leave AGAINST MEDICAL ADVICE. He states that he want to go out and get high on amphetamine. He endorses that he does not want to quit using drugs. DISCHARGE DIAGNOSIS Diabetic ketoacidosis Anion gap metabolic acidosis secondary to above Acute kidney injury secondary to above Hyperkalemia Type 1 diabetes mellitus Polysubstance abuse disorder including cocaine, marijuana, methamphetamine Nicotine dependence Being discharged with a guarded prognosis. brewery worker and case consultant provided help regrading him diabetic supplies - gave him Glucometer and refilled his Insulin. More than 35 minutes spent towards the discharge of the patient. Patient Condition at Discharge: Fair Plan - Discharge Summary Discharge Rx Participant: Yes New Discharge Prescriptions: New Insulin Detemir (Levemir) [Levemir] 40 unit SQ DAILY@0700 30 Days #2 syr INSULIN ASPART (NovoLOG) [NovoLOG (formulary)] 8 unit SQ ACHS 30 Days #1 vial Thiamine [Vitamin B-1] 100 mg PO BID-W/MEALS 30 Days #30 tab Discharge Medication List INSULIN ASPART (NovoLOG) [NovoLOG (formulary)] 8 unit SQ ACHS 30 Days #1 vial 11/12/20 [Rx] Insulin Detemir (Levemir) [Levemir] 40 unit SQ DAILY@0700 30 Days #2 syr 11/12/20 [Rx] Thiamine [Vitamin B-1] 100 mg PO BID-W/MEALS 30 Days #30 tab 11/12/20 [Rx] Follow up Appointment(s)/Referral(s): Yolanda Harrison MD [Primary Care Provider] - 1-2 days Patient Instructions/Handouts: Diabetic Ketoacidosis (DC), Methamphetamine Abuse (DC) Discharge Disposition: HOME SELF-CARE
== END 2020-11-12 14:38 | disposition home or self-care (01) ==
LOC: EC 10:02 → INTOOBSV 13:09 → 3SCARD 13:09 → UNDODISIN 11-12 14:38
PROVIDERS: ADMIT Internal Medicine; ATTEND Internal Medicine
DX: E10.10 Type 1 diabetes mellitus with ketoacidosis without coma (principal); N17.9 Acute kidney failure, unspecified; E87.5 Hyperkalemia; F31.9 Bipolar disorder, unspecified; F41.0 Panic disorder [episodic paroxysmal anxiety]; F43.10 Post-traumatic stress disorder, unspecified; F41.8 Other specified anxiety disorders; F19.10 Other psychoactive substance abuse, uncomplicated; F10.10 Alcohol abuse, uncomplicated; F17.200 Nicotine dependence, unspecified, uncomplicated; Z79.4 Long term (current) use of insulin; Z79.899 Other long term (current) drug therapy
CPT/HCPCS: 96361 ×3; 96365; 99284; 36415; 93005; 80051; 80053; 82565; 82009; 83690; 84100; 82947; 84520; 85025; 81003; G0378 ×2; 96360